=== PATIENT | female | born 1985 | race Caucasian/White ===

== ENCOUNTER → 2016-12-01 | Outpatient (CLI) | payer OTHER ==
[2016-12-01 16:36] LABS: Bilirubin, Delta 0.1 mg/dL (0.0-0.2); Total Bilirubin 0.2 mg/dL (0.2-1.3); Total Protein 6.4 g/dL (6.3-8.2)
== END ==
LOC: LABWHC1 15:43
PROVIDERS: ATTEND Midwife
DX: Z34.92 Encounter for supervision of normal pregnancy, unspecified, second trimester (principal); Z3A.00 Weeks of gestation of pregnancy not specified
CPT/HCPCS: 36415; 80076; 81050; 82570; 84156

== ENCOUNTER → 2019-02-14 | Outpatient (CLI) | payer OTHER ==
[2019-02-14 15:45] LABS: Basophils % (A) 1 %; Eosinophils # (A) 0.1 k/uL (0-0.7); Eosinophils % (A) 1 %; HCT 41.8 % (34.0-46.0); HGB 14.3 gm/dL (11.4-16.0); Lymphocytes # (A) 2.1 k/uL (1.0-4.8); Lymphocytes % (A) 27 %; MCH 29.5 pg (25.0-35.0); MCHC 34.3 g/dL (31.0-37.0); MCV 86.2 fL (80.0-100.0); Mean Platelet Volume 7.1; Monocytes # (A) 0.4 k/uL (0-1.0); Monocytes % (A) 5 %; Neutrophils % (A) 65 %; Platelet Count 298 k/uL (150-450); RBC 4.86 m/uL (3.80-5.40); RDW 13.2 % (11.5-15.5); WBC 7.7 k/uL (3.8-10.6)
[2019-02-14 18:41] LABS: Erythrocyte Sedimentation Rate 12 mm/hr (0-20)
[2019-02-15 10:28] LABS: African American GFR (CKD) 139.8 (60.0-200.0); Albumin 4.1 g/dL (3.80-4.90); Albumin/Globulin Ratio 1.71 (1.60-3.17); Anion Gap 5.5 mmol/L (4.00-12.00); BUN/Creat Ratio 13.33 Ratio (12.00-20.00); Calcium 9.4 mg/dL (8.7-10.3); Carbon Dioxide 27.5 mmol/L (21.6-31.8); Globulin 2.4 g/dL (1.6-3.3); Potassium 4.2 mmol/L (3.5-5.5); Total Bilirubin 0.3 mg/dL (0.3-1.2); Total Protein 6.5 g/dL (6.2-8.2)
[2019-02-15 10:44] LABS: T4, Free (Free Thyroxine) 0.9 ng/dL (0.80-1.80)
[2019-02-15 13:42] LABS: Hemoglobin A1C 4.6 % (4.0-6.0)
== END | disposition home or self-care (01) ==
LOC: LABWHC1 15:22
PROVIDERS: ATTEND Family Medicine
DX: Z00.00 Encounter for general adult medical examination without abnormal findings (principal); J84.10 Pulmonary fibrosis, unspecified; M34.9 Systemic sclerosis, unspecified
CPT/HCPCS: 36415; 80053; 83036; 84439; 84443; 85025; 85379; 85652

== ENCOUNTER → 2019-03-05 | Outpatient (CLI) | payer OTHER ==
--- NOTE | 2019-03-05 09:30 | MM ---
Reason for exam: additional evaluation requested from prior study. Last mammogram was performed 4 years and 4 months ago. History: Family history of breast cancer in maternal grandmother, breast cancer in maternal grandfather, breast cancer in paternal grandmother, and breast cancer in maternal aunt. Benign US LT VAD breast biopsy of the left breast, July 04, 2013. Cancelled Left US Needle Biopsy of the left breast, October 04, 2009. Benign left breast US guided needle locali of both breasts, February 12, 2009. Benign right breast US guided needle local of both breasts, February 12, 2009. Cancelled Right US Needle Biopsy of the right breast, January 27, 2009. Taking hormonal contraceptives for 1 year. Physical Findings: Nurse Summary: 1 x 1cm nodule in the left breast at 1 o'clock and a 1 x 1.5cm nodule in the left breast at 4 o'clock (nurse ts). MG 3D Diag Mammo W/Cad OVIDIO Bilateral CC and MLO view(s) were taken. Spot compression CC and spot compression MLO view(s) were taken of the left breast. Prior study comparison: November 13, 2014, bilateral MG diagnostic mammo w CAD OVIDIO. June 16, 2013, CAD bilateral diagnostic mammogram. The breast tissue is heterogeneously dense. This may lower the sensitivity of mammography. Finding: There is an equal, indistinct architectural distortion in the 6-7 o'clock subareolar position of the left breast, disperses with compression. BB's correspond to prior nodules, no internal growth. These results were verbally communicated with the patient and result sheet given to the patient on 03/05/19. ASSESSMENT: Probably benign, BI-RAD 3 RECOMMENDATION: Follow-up diagnostic mammogram of the left breast in 6 months.
== END | disposition home or self-care (01) ==
LOC: RADMAMWWP 07:41
PROVIDERS: ATTEND Family Medicine
DX: R92.8 Other abnormal and inconclusive findings on diagnostic imaging of breast (principal)
CPT/HCPCS: 77066; G0279; 77062

== ENCOUNTER → 2019-12-02 | Outpatient (CLI) | payer OTHER ==
--- NOTE | 2019-12-02 12:17 | USB ---
Reason for exam: clinical finding. History: Family history of breast cancer in maternal grandmother, breast cancer in maternal grandfather, breast cancer in paternal grandmother, and breast cancer in maternal aunt. Benign US LT VAD breast biopsy of the left breast, July 04, 2013. Cancelled Left US Needle Biopsy of the left breast, October 04, 2009. Benign left breast US guided needle locali of both breasts, February 12, 2009. Benign right breast US guided needle local of both breasts, February 12, 2009. Cancelled Right US Needle Biopsy of the right breast, January 27, 2009. Taking hormonal contraceptives for 1 year. Physical Findings: Nurse Summary: left breast palpable 1 o'clock, 3 o'clock, 5 o'clock non-tender, movable, tenderness noted left upper outer quadrant on exam, 5 o'clock palpable largest at 2 x 2cm (nurse ts). US Breast BILAT Left complete breast ultrasound includes all four quadrants, the retroareolar region and axilla. Finding demonstrates a 9 x 8 x 11mm solid, hypoechoic lesion at 1 o'clock, a 9 x 6 x 9mm solid, hypoechoic lesion at 2 o'clock and a 21 x 17 x 17mm solid, hypoechoic lesion at 4 o'clock, smaller than 2015, previously biopsied in 2013. Right complete breast ultrasound includes all four quadrants, the retroareolar region and axilla. Finding demonstrates no cystic or solid lesion seen. These results were verbally communicated with the patient and result sheet given to the patient on 12/02/19. ASSESSMENT: Incomplete: need additional imaging evaluation, BI-RAD 0 RECOMMENDATION: Follow-up diagnostic mammogram of the left breast.
--- NOTE | 2019-12-02 12:18 | MM ---
Reason for exam: follow-up at short interval from prior study. Last mammogram was performed 9 months ago. History: Family history of breast cancer in maternal grandmother, breast cancer in maternal grandfather, breast cancer in paternal grandmother, and breast cancer in maternal aunt. Benign US LT VAD breast biopsy of the left breast, July 04, 2013. Cancelled Left US Needle Biopsy of the left breast, October 04, 2009. Benign left breast US guided needle locali of both breasts, February 12, 2009. Benign right breast US guided needle local of both breasts, February 12, 2009. Cancelled Right US Needle Biopsy of the right breast, January 27, 2009. Taking hormonal contraceptives for 1 year. MG Diagnostic Mammo LT w CAD CC and MLO view(s) were taken of the left breast. Prior study comparison: March 05, 2019, bilateral MG 3d diag mammo w/cad OVIDIO. November 13, 2014, bilateral MG diagnostic mammo w CAD OVIDIO. The breast tissue is heterogeneously dense. This may lower the sensitivity of mammography. Decreased distortion left subareolar region. No significant new findings when compared with previous films. These results were verbally communicated with the patient and result sheet given to the patient on 12/02/19. ASSESSMENT: Benign, BI-RAD 2 RECOMMENDATION: Routine screening mammogram of both breasts at age 37. Manage patient on a clinical basis.
== END | disposition home or self-care (01) ==
LOC: RADUSWWP 10:08
PROVIDERS: ATTEND Family Medicine
DX: N63.0 Unspecified lump in unspecified breast (principal)
CPT/HCPCS: 77065

== ENCOUNTER → 2021-04-19 | Outpatient (CLI) | payer OTHER ==
--- NOTE | 2021-04-19 10:18 | XR ---
EXAMINATION TYPE: XR chest 2V DATE OF EXAM: 04/19/2021 COMPARISON: 02/03/2016 TECHNIQUE: PA and lateral views submitted. HISTORY: Shortness of breath FINDINGS: Bilateral infiltrate and small effusion with coarsened interstitium. Heart size normal. Biapical pleu ral thickening. No pneumothorax. IMPRESSION: 1. Persistent diffuse interstitial pattern correlate for interstitial pneumonitis with bilateral lowe r lobe pneumonia.
== END | disposition home or self-care (01) ==
LOC: RADXRMAIN 09:51
PROVIDERS: ATTEND Family Medicine
DX: R06.02 Shortness of breath (principal)
CPT/HCPCS: 71046

== ENCOUNTER → 2021-05-04 | Outpatient (CLI) | payer OTHER ==
--- NOTE | 2021-05-04 14:31 | XR ---
EXAMINATION TYPE: XR chest 2V DATE OF EXAM: 05/04/2021 COMPARISON: Chest x-ray 04/19/2021 HISTORY: Bilateral pneumonia, pulmonary fibrosis TECHNIQUE: Frontal and lateral views of the chest are obtained. FINDINGS: Lung volumes are low. Interstitium is increased. There is no evident pneumothorax or pleur al effusion. Cardiac mediastinal silhouette is stable. Bones are unchanged. Exam is stable. IMPRESSION: Stable findings consistent with underlying interstitial lung disease.
== END | disposition home or self-care (01) ==
LOC: RADXRMAIN 12:47
PROVIDERS: ATTEND Family Medicine
DX: J18.9 Pneumonia, unspecified organism (principal)
CPT/HCPCS: 71046

== ENCOUNTER 2022-08-04 15:10 | Emergency (ER) | payer OTHER ==
[2022-08-04 17:02] LABS: Basophils # (A) 0.1 k/uL (0-0.2); Basophils % (A) 1 %; Eosinophils # (A) 0.1 k/uL (0-0.7); Eosinophils % (A) 2 %; HCT 43.4 % (34.0-46.0); HGB 14.4 gm/dL (11.4-16.0); Lymphocytes # (A) 2.5 k/uL (1.0-4.8); Lymphocytes % (A) 28 %; MCH 28.7 pg (25.0-35.0); MCHC 33.2 g/dL (31.0-37.0); MCV 86.3 fL (80.0-100.0); Monocytes # (A) 0.3 k/uL (0-1.0); Monocytes % (A) 4 %; Neutrophils # (A) 5.8 k/uL (1.3-7.7); Neutrophils % (A) 65 %; Platelet Count 324 k/uL (150-450); RBC 5.03 m/uL (3.80-5.40); RDW 13.4 % (11.5-15.5); WBC 8.9 k/uL (3.8-10.6)
[2022-08-04 17:15] LABS: Potassium 4.6 mmol/L (3.5-5.1)
[2022-08-04 17:16] LABS: ALT 26 U/L (4-34); AST 29 U/L (14-36); African American GFR (CKD) >90 (>60 ml/min/1.73 sqM); Albumin 4.2 g/dL (3.5-5.0); Alkaline Phosphatase 76 U/L (38-126); Anion Gap 7 mmol/L; Blood Urea Nitrogen 8 mg/dL (7-17); Calcium 9.1 mg/dL (8.4-10.2); Carbon Dioxide 24 mmol/L (22-30); Chloride 107 mmol/L (98-107); Glucose 112 mg/dL (74-99); Non-African American GFR(CKD) >90 (>60 ml/min/1.73 sqM); Sodium 138 mmol/L (137-145); Total Bilirubin 0.4 mg/dL (0.2-1.3); Total Protein 7.4 g/dL (6.3-8.2)
[2022-08-04 17:32] LABS: HCG,Quantitative Serum 7939.9 mIU/mL
[2022-08-04 17:40] LABS: Appearance,Urine Clear (Clear); Bilirubin,Urine Negative (Negative); Blood,Urine Large (Negative); Color,Urine Yellow; Glucose,Urine (UA) Negative (Negative); Ketones,Urine Negative (Negative); Leukocyte Esterase,Urine Negative (Negative); Mucus,Urine Few /hpf; Nitrite,Urine Negative (Negative); Protein,Urine Trace (Negative); RBC,Urine 69 /hpf (0-5); Specific Gravity,Urine 1.032 (1.001-1.035); Squamous Epithelial Cell,Urine 3 /hpf (0-4); Urobilinogen,Urine <2.0 mg/dL (<2.0); WBC,Urine 1 /hpf (0-5)
--- NOTE | 2022-08-04 17:59 | US ---
EXAMINATION TYPE: Transabdominal DATE OF EXAM: 08/04/2022 5:40 PM COMPARISON: NONE CLINICAL HISTORY: vb in . Pt states light vaginal bleeding x 4-5 days EXAM PERFORMED: Transabdominal (TA) EXAM MEASUREMENTS: GESTATIONAL AGE / DATING Physician Established: Not yet established Dates by LMP: (10 weeks/1 days) EDC: 03/01/2023 Dates by First Scan: No previous this is first scan Dates by Current Scan for: (5 weeks/0 days) EDC: 04/06/2023 MATERNAL ANATOMY Uterus: 7.6 x 5.1 x 5.2 cm/ Probable fibroid anterior, right uterine body= 2.1 x 1.7 x 2.3 cm Right Ovary: 2.9 x 2.2 x 2.6 cm Left Ovary: 3.0 x 2.1 x 2.9 cm Post CDS / Adnexa: wnl Presence of free fluid: No Presence of corpus luteal cyst: Left Ovary= 1.5 x 1.5 x 1.4 cm Presence of subchorionic bleed: No GESTATION / SURVEY CRL: Not visualized MSD: 1.02 (5 weeks/0 days) Yolk Sac (normal less than 6mm): Not visualized Date of LMP: 05/25/2022 Beta HcG (if available): Not available at this time Possible small gestational sac visualized within uterus, no pole or yolk sac visualized at th is time/ Probable fibroid anterior uterine body IMPRESSION: Possible early intrauterine gestational sac and follow-up exam recommended in 14 days to confirm lionel ng fetus. No adnexal solid mass.
--- NOTE | 2022-08-04 18:17 | ED ---
General Adult HPI - General Chief complaint: Abdominal Pain Stated complaint: 6 weeks preg/spotting blood Time Seen by Provider: 08/04/22 16:28 Source: patient, RN notes reviewed, old records reviewed Mode of arrival: ambulatory Limitations: no limitations - History of Present Illness Initial comments: 37-year-old female approximately 5 or 6 weeks presenting with vaginal spotting. Patient has had 2 prior pregnancies with 2 living children. She has been seen by the high risk call center director's and had outpatient lab testing and ultrasound. She was diagnosed with subchorionic hemorrhage. On Sunday of this week which was the 13th she had. HCG testing. She denies abdominal pain, denies cramping, denies dysuria. - Related Data Home Medications Medication Instructions Recorded Confirmed Hydrocodone/Acetaminophen 1 tab PO Q8H PRN 07/08/14 04/28/16 [Hydrocodone/Acetaminophen 10-325] Butalb/Acetaminophen/Caffeine 1 - 2 cap PO Q4HR PRN 06/22/15 04/28/16 [Fioricet 50-300-40 mg Capsule] Albuterol Nebulized [Ventolin 2.5 mg INHALATION RT-QID PRN 02/03/16 04/28/16 Nebulized] Cetirizine HCl [Zyrtec] 10 mg PO DAILY 04/28/16 04/28/16 Ibuprofen [Motrin] 600 mg PO Q6HR PRN 04/28/16 04/28/16 Sucralfate 1 gm PO BID 04/28/16 04/28/16 Allergies Allergy/AdvReac Type Severity Reaction Status Date / Time No Known Allergies Allergy Verified 08/04/22 15:37 Review of Systems ROS Statement: Those systems with pertinent positive or pertinent negative responses have been documented in the HPI. ROS Other: All systems not noted in ROS Statement are negative. Past Medical History Past Medical History: Asthma, GERD/Reflux Additional Past Medical History / Comment(s): Scleroderma, pulmonary fibrosis, migraine/allergies/raynauds History of Any Multi-Drug Resistant Organisms: None Reported Past Surgical History: Orthopedic Surgery Additional Past Surgical History / Comment(s): lt knee arthroscopically, lt eye, masses removed from breast, benign Past Anesthesia/Blood Transfusion Reactions: No Reported Reaction Past Psychological History: Anxiety, Depression, PTSD Smoking Status: Never smoker, Second hand smoke exposure Past Alcohol Use History: None Reported Past Drug Use History: None Reported - Past Family History Father Additional Family Medical History / Comment(s): Patient is not know any information on her father. Mother Additional Family Medical History / Comment(s): Mother is alive at age 49 with history of ankle ankylosing spondylitis Brother(s) Additional Family Medical History / Comment(s): Patient has 4 half-brothers. She knows one has autism and the other 3 she does not know anything about them. Sister(s) Additional Family Medical History / Comment(s): She has one half sister with hypothyroidism. Daughter(s) Additional Family Medical History / Comment(s): Patient has one 12-year-old daughter with no major medical problems. General Exam Limitations: no limitations General appearance: alert, in no apparent distress Head exam: Present: atraumatic, normocephalic Eye exam: Present: normal appearance Neck exam: Present: normal inspection Respiratory exam: Absent: respiratory distress Cardiovascular Exam: Present: regular rate, normal rhythm GI/Abdominal exam: Absent: distended Extremities exam: Present: full ROM Neurological exam: Present: alert, oriented X3 Skin exam: Present: intact, normal color Course Vital Signs 08/04/22 08/04/22 15:34 18:26 Temperature 98.1 F 97.9 F Pulse Rate 66 76 Respiratory 20 14 Rate Blood Pressure 128/92 129/91 O2 Sat by Pulse 94 L Oximetry Medical Decision Making - Medical Decision Making Was pt. sent in by a medical professional or institution (SANDI Lorenzo, [employer], urgent care, hospital, or fpc...) When possible be specific @ -No Did you speak to anyone other than the patient for history (EMS, parent, family, police, friend...)? What history was obtained from this source @ -No Did you review nursing and triage notes (agree or disagree)? Why? @ -I reviewed and agree with nursing and triage notes Were old charts reviewed (outside hosp., previous admission, EMS record, old EKG, old radiological studies, urgent care reports/EKG's, fpc records)? Report findings @ -Previous lab returned testing including beta hCG. Differential Diagnosis (chest pain, altered mental status, abdominal pain women, abdominal pain men, vaginal bleeding, weakness, fever, dyspnea, syncope, headache, dizziness, GI bleed, back pain, seizure, CVA, palpatations, mental health, musculoskeletal)? @ -Differential Vaginal Bleeding: Spontaneous , threatened , molar , ectopic , bloody show, incompetent cervix, abruptioplacenta, placenta previa, uterine rupture, dysfunctional uterine bleeding, hemorrhage, uterine fibroids, this is not meant to be an all-inclusive list. EKG interpreted by me (3pts min.). @ -As above X-rays interpreted by me (1pt min.). @ -None done CT interpreted by me (1pt min.). @ -None done U/S interpreted by me (1pt. min.). @ -Ultrasound was performed I did not review these images What testing was considered but not performed or refused? (CT, X-rays, U/S, labs)? Why? @ -None What meds were considered but not given or refused? Why? @ -None Did you discuss the management of the patient with other professionals (professionals i.e. , PA, [employer]PECTOR, lab, RT, psych nurse, dialysis social worker, braille teacher, teacher, juvenile officer, case monitor)? Give summary @ -No Was smoking cessation discussed for >3mins.? @ -No Was critical care preformed (if so, how long)? @ -No Were there social determinants of health that impacted care today? How? (Homelessness, low income, unemployed, alcoholism, drug addiction, transportation, low edu. Level, literacy, decrease access to med. care, group home, rehab)? @ -No Was there de-escalation of care discussed even if they declined (Discuss DNR or withdrawal of care, Hospice)? DNR status @ -No What co-morbidities impacted this encounter? (DM, HTN, Smoking, COPD, CAD, Cancer, CVA, ARF, Chemo, Hep., AIDS, mental health diagnosis, sleep apnea, morb id obesity)? @ -Raynauds Was patient admitted / discharged? Hospital course, mention meds given and route, prescriptions, significant lab abnormalities, going to OR and other pertinent info. @ -37-year-old female who had presented for vaginal bleeding proximally 6 weeks . Patient denies abdominal pain. Repeat ultrasound is performed which shows a intrauterine gestational sac, no pole. There is a uterine fibroid, her beta hCG is 8000 which is down trending. There is concern for miscarriage. I did discuss repeat beta hCG which will be performed in 48 hours. She has an appointment with her call center director. She will be off work until she is evaluated by her OB. Undiagnosed new problem with uncertain prognosis? @ -No Drug Therapy requiring intensive monitoring for toxicity (Heparin, Nitro, Insulin, Cardizem)? @ -No Were any procedures done? @ -No Diagnosis/symptom? @ -Threatened miscarriage Acute, or Chronic, or Acute on Chronic? @ -Acute Uncomplicated (without systemic symptoms) or Complicated (systemic symptoms)? @ -default Side effects of treatment? @ -No Exacerbation, Progression, or Severe Exacerbation? @ -No Poses a threat to life or bodily function? How? (Chest pain, USA, MA, pneumonia, PE, COPD, DKA, ARF, appy, cholecystitis, CVA, Diverticulitis, Homicidal, Suicidal, threat to staff... and all critical care pts) @ -No - Lab Data Result diagrams: 08/04/22 16:50 08/04/22 16:50 Lab Results 08/04/22 08/04/22 08/04/22 Range/Units 16:50 16:50 16:50 WBC 8.9 (3.8-10.6) k/uL RBC 5.03 (3.80-5.40) m/uL Hgb 14.4 (11.4-16.0) gm/dL Hct 43.4 (34.0-46.0) % MCV 86.3 (80.0-100.0) fL MCH 28.7 (25.0-35.0) pg MCHC 33.2 (31.0-37.0) g/dL RDW 13.4 (11.5-15.5) % Plt Count 324 (150-450) k/uL MPV 7.0 Neutrophils % 65 % Lymphocytes % 28 % Monocytes % 4 % Eosinophils % 2 % Basophils % 1 % Neutrophils # 5.8 (1.3-7.7) k/uL Lymphocytes # 2.5 (1.0-4.8) k/uL Monocytes # 0.3 (0-1.0) k/uL Eosinophils # 0.1 (0-0.7) k/uL Basophils # 0.1 (0-0.2) k/uL Sodium 138 (137-145) mmol/L Potassium 4.6 (3.5-5.1) mmol/L Chloride 107 (98-107) mmol/L Carbon Dioxide 24 (22-30) mmol/L Anion Gap 7 mmol/L BUN 8 (7-17) mg/dL Creatinine 0.63 (0.52-1.04) mg/dL Est GFR (CKD-EPI)AfAm >90 (>60 ml/min/1.73 sqM) Est GFR (CKD-EPI)NonAf >90 (>60 ml/min/1.73 sqM) Glucose 112 H (74-99) mg/dL Calcium 9.1 (8.4-10.2) mg/dL Total Bilirubin 0.4 (0.2-1.3) mg/dL AST 29 (14-36) U/L ALT 26 (4-34) U/L Alkaline Phosphatase 76 (38-126) U/L Total Protein 7.4 (6.3-8.2) g/dL Albumin 4.2 (3.5-5.0) g/dL HCG, Quant 7939.9 mIU/mL Urine Color Yellow Urine Appearance Clear (Clear) Urine pH 6.0 (5.0-8.0) Ur Specific [place] 1.032 (1.001-1.035) Urine Protein Trace H (Negative) Urine Glucose (UA) Negative (Negative) Urine Ketones Negative (Negative) Urine Blood Large H (Negative) Urine Nitrite Negative (Negative) Urine Bilirubin Negative (Negative) Urine Urobilinogen <2.0 (<2.0) mg/dL Ur Leukocyte Esterase Negative (Negative) Urine RBC 69 H (0-5) /hpf Urine WBC 1 (0-5) /hpf Ur Squamous Epith Cells 3 (0-4) /hpf Urine Mucus Few H (None) /hpf Disposition Clinical Impression: Vaginal bleeding affecting early , Threatened miscarriage in early Disposition: HOME SELF-CARE Condition: Fair Instructions (If sedation given, give patient instructions): Threatened Miscarriage (ED) Additional Instructions: Please follow up with her call center director on Sunday, please have repeat beta hCG test performed on Sunday. Is patient prescribed a controlled substance at d/c from ED?: No Referrals: Deric Montejo DO [Primary Care Provider] - 1-2 days Time of Disposition: 18:16
[2022-08-04 18:29] VITALS: BP 129/91; PULSE 76; RESP 14; TEMP 97.9
== END 2022-08-04 18:31 | disposition home or self-care (01) ==
LOC: EC 15:10
DX: O20.0 Threatened abortion (principal); O99.511 Diseases of the respiratory system complicating pregnancy, first trimester; O99.351 Diseases of the nervous system complicating pregnancy, first trimester; F41.9 Anxiety disorder, unspecified; F32.A Depression, unspecified; J45.909 Unspecified asthma, uncomplicated; Z77.22 Contact with and (suspected) exposure to environmental tobacco smoke (acute) (chronic); Z79.899 Other long term (current) drug therapy; Z3A.01 Less than 8 weeks gestation of pregnancy
CPT/HCPCS: 36415; 76801; 80053; 81001; 84702; 85025; 86900; 86901; 99284

== ENCOUNTER → 2023-02-28 | Outpatient (CLI) | payer OTHER ==
--- NOTE | 2023-03-01 08:33 | FL ---
COMPARISON: NONE DATE OF EXAM: 02/28/2023 HISTORY: Dysphasia A number of thin and thick substances were ingested under the care of the department of speech pathol ogy. There is no evidence of aspiration or penetration. There is no evidence of obstruction. 32 se conds of fluoroscopy. DAP not measurable. IMPRESSION: 1. No evidence of aspiration or penetration.
== END | disposition home or self-care (01) ==
LOC: RADFLMAIN 11:34
PROVIDERS: ATTEND Family Medicine
DX: R11.2 Nausea with vomiting, unspecified (principal); R47.02 Dysphasia
CPT/HCPCS: 74220

== ENCOUNTER → 2023-03-02 | Outpatient (CLI) | payer OTHER ==
--- NOTE | 2023-03-02 16:01 | XR ---
EXAMINATION TYPE: XR forearm RT DATE OF EXAM: 03/02/2023 COMPARISON: NONE HISTORY: Pain Two views of the forearm demonstrate that the osseous structures appear to be intact and the joint sp aces appear to be preserved. There is no acute fracture or dislocation. IMPRESSION: 1. No acute fracture or dislocation
--- NOTE | 2023-03-02 16:03 | XR ---
EXAMINATION TYPE: XR wrist complete RT DATE OF EXAM: 03/02/2023 COMPARISON: NONE HISTORY: Pain TECHNIQUE: Four views submitted. FINDINGS: The osseous structures are intact. The joint spaces are preserved and there is no acute fracture or dislocation. IMPRESSION: 1. No definite acute fracture or dislocation if symptoms persist, follow-up study in 7 to 10 days wo uld be suggested
== END | disposition home or self-care (01) ==
LOC: RADXRMAIN 15:36
PROVIDERS: ATTEND Emergency Medicine
DX: S50.11XA Contusion of right forearm, initial encounter (principal); S60.211A Contusion of right wrist, initial encounter; X58.XXXA Exposure to other specified factors, initial encounter

== ENCOUNTER → 2023-03-14 | Outpatient (CLI) | payer OTHER ==
--- NOTE | 2023-03-14 16:51 | XR ---
EXAMINATION TYPE: XR forearm RT DATE OF EXAM: 03/14/2023 CLINICAL HISTORY: Contusion, subsequently, TECHNIQUE: Two views of the right forearm are obtained. COMPARISON: Prior right forearm x-ray 12 days earlier FINDINGS: There is no acute fracture or dislocation seen in the right radius or ulna. The right elb ow and wrist joints remain within normal limits. The overlying soft tissue appears within normal [place] its. IMPRESSION: There is no acute fracture or dislocation seen in the right radius or ulna. Unremarkable study. No significant change from prior.
== END | disposition home or self-care (01) ==
LOC: RADXRMAIN 16:25
PROVIDERS: ATTEND Emergency Medicine
DX: S50.11XD Contusion of right forearm, subsequent encounter (principal); X58.XXXD Exposure to other specified factors, subsequent encounter

== ENCOUNTER 2023-07-30 19:00 | Emergency (ER) | payer OTHER ==
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
[2023-07-30 19:27] VITALS: BP 137/93; TEMP 98.8
[2023-07-30 19:48] LABS: Basophils % (A) 0 %; Eosinophils # (A) 0.1 k/uL (0-0.7); Eosinophils % (A) 1 %; HCT 39.1 % (34.0-46.0); HGB 13.2 gm/dL (11.4-16.0); Lymphocytes # (A) 2.1 k/uL (1.0-4.8); Lymphocytes % (A) 20 %; MCH 29.2 pg (25.0-35.0); MCHC 33.9 g/dL (31.0-37.0); MCV 86.3 fL (80.0-100.0); Mean Platelet Volume 7.9; Monocytes # (A) 0.4 k/uL (0-1.0); Monocytes % (A) 3 %; Neutrophils # (A) 7.9 k/uL (1.3-7.7); Neutrophils % (A) 74 %; Platelet Count 276 k/uL (150-450); RBC 4.52 m/uL (3.80-5.40); RDW 13.8 % (11.5-15.5); WBC 10.7 k/uL (3.8-10.6)
[2023-07-30 19:51] LABS: Amorphous Sediment,Urine Rare /hpf; Appearance,Urine Clear (Clear); Bilirubin,Urine Negative (Negative); Blood,Urine Negative (Negative); Color,Urine Yellow; Glucose,Urine (UA) Negative (Negative); Ketones,Urine Negative (Negative); Leukocyte Esterase,Urine Moderate (Negative); Mucus,Urine Moderate /hpf; Nitrite,Urine Negative (Negative); PH, Urine 5.5 (5.0-8.0); Protein,Urine Trace (Negative); RBC,Urine 4 /hpf (0-5); Specific Gravity,Urine 1.035 (1.001-1.035); Squamous Epithelial Cell,Urine 3 /hpf (0-4); Urobilinogen,Urine <2.0 mg/dL (<2.0); WBC,Urine 5 /hpf (0-5)
[2023-07-30 19:58] LABS: ALT 9 U/L (4-34); AST 18 U/L (14-36); African American GFR (CKD) >90 (>60 ml/min/1.73 sqM); Albumin 3.6 g/dL (3.5-5.0); Alkaline Phosphatase 72 U/L (38-126); Anion Gap 10 mmol/L; Blood Urea Nitrogen 12 mg/dL (7-17); Calcium 8.9 mg/dL (8.4-10.2); Carbon Dioxide 18 mmol/L (22-30); Chloride 109 mmol/L (98-107); Glucose 108 mg/dL (74-99); Non-African American GFR(CKD) >90 (>60 ml/min/1.73 sqM); Potassium 3.6 mmol/L (3.5-5.1); Sodium 137 mmol/L (137-145); Total Bilirubin 0.2 mg/dL (0.2-1.3); Total Protein 6.7 g/dL (6.3-8.2)
[2023-07-30] MEDS: ACETAMINOPHEN TAB 325 MG TAB PO STA (20:12)
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
[2023-07-30 21:14] LABS: HCG,Quantitative Serum 92353.5 mIU/mL
[2023-07-30 22:03] VITALS: PULSE 65; RESP 17
== END 2023-07-30 21:58 | disposition home or self-care (01) ==
LOC: EC 19:00
DX: O20.0 Threatened abortion (principal); O23.91 Unspecified genitourinary tract infection in pregnancy, first trimester; R82.71 Bacteriuria; O99.511 Diseases of the respiratory system complicating pregnancy, first trimester; J45.909 Unspecified asthma, uncomplicated; Z79.899 Other long term (current) drug therapy; Z86.59 Personal history of other mental and behavioral disorders; Z3A.11 11 weeks gestation of pregnancy
CPT/HCPCS: 36415; 76801; 80053; 81001; 84702; 85025; 86900; 86901; 99284

== ENCOUNTER → 2024-02-22 | Outpatient (CLI) | payer OTHER ==
--- NOTE | 2024-02-22 13:13 | XR ---
EXAMINATION TYPE: XR chest 2V DATE OF EXAM: 02/22/2024 12:09 PM CLINICAL INDICATION: Female, 39 years old with history of L18.9 PNEUMONIA; COMPARISON: Chest radiographs from 05/04/2021 TECHNIQUE: XR chest 2V Frontal view of the chest. FINDINGS: Lungs/Pleura: There is no evidence of pleural effusion, focal consolidation, or pneumothorax. Pulmonary vascularity: Unremarkable. Heart/mediastinum: Cardiomediastinal silhouette is unremarkable. Musculoskeletal: No acute osseous pathology. IMPRESSION: Stable exam, No acute cardiopulmonary disease/process. [facility], , 02/22/2024 1:11 PM
== END | disposition home or self-care (01) ==
LOC: RADXRMAIN 11:55
PROVIDERS: ATTEND Family Medicine
DX: J18.9 Pneumonia, unspecified organism (principal)
CPT/HCPCS: 71046